=== PATIENT | female | born 1980 | race Caucasian/White ===

== ENCOUNTER 2024-08-08 15:15 | Outpatient (RCR) | payer BC, SELFPAY | END 2024-12-06 23:59 | disposition home or self-care (01) | PROVIDERS: Visit Provider Family Medicine | DX: G56.03 Carpal tunnel syndrome, bilateral upper limbs (principal); M25.521 Pain in right elbow; Z51.89 Encounter for other specified aftercare | CPT/HCPCS: 97033; 97035; 97110; 97140; 97166; X5282 ==

== ENCOUNTER 2024-12-24 16:15 | Outpatient (RCR) | payer BC, SELFPAY | END 2025-02-02 13:28 | disposition home or self-care (01) | PROVIDERS: Visit Provider Physician Assistant | DX: G62.9 Polyneuropathy, unspecified (principal); M65.262 Calcific tendinitis, left lower leg; G35 Multiple sclerosis; M79.671 Pain in right foot; M79.672 Pain in left foot; M72.2 Plantar fascial fibromatosis; Z51.89 Encounter for other specified aftercare | CPT/HCPCS: 97110; 97112; 97162 ==

== ENCOUNTER 2025-01-01 09:02 | Emergency (ER) | payer OTHER, BC, SELFPAY ==
[2025-01-01 09:04] VITALS: BP 118/72; PULSE 76; RESP 20; TEMP 36.4; O2SAT 100; BMI 30.7
--- OUTSIDE RECORDS SUMMARY | 2025-01-01 09:05 | XMS_ITS | Clinical Summary ---
Author Organization [employer] [facility] Address [address] [place] [address] Care Team Providers Care Physical Integration Practitioner Name Role Phone Pcp, No Primary Care Provider Unavailabl e Allergies Active Allergy Reactions Criticality Noted Date Comments Benzodiazepines Confusion,Hallucinat ions ,Other - Describe In Comment Field 05/16/2011 Agitation, confusion hallucinations PN: agitation, paranoia PN: hallucinations Lorazepam Agitation,Hallucinations 05/21/2011 Medications calcium carbonate (CALCIUM 500) 500 mg calcium (1,250 mg) tablet Take 1,250 mg by mouth 2 times daily with meals. Active cholecalciferol (VITAMIN D) 1,000 unit capsule Take 4,000 Units by mouth once daily. Active multivitamin-min erals therapeutic (THERAGRAN-M) tablet Take 1 Tab by mouth. Active gabapentin (NEURONTIN) 100 mg capsuleIndicatio ns:Trigeminal neuralgia Take 1 capsule by mouth 3 times daily. 90 capsule 1 07/29/2019 Active Active Problems Problem Noted Date Diagnosed Date Tachycardia 02/01/2013 Weight loss 02/01/2013 Anxiety 01/13/2013 Insomnia 01/13/2013 Anxiety state, unspecified 05/29/2011 Major depressive disorder, recurrent episode, un specified 05/29/2011 Severe recurrent major depression with psychotic features 05/22/2011 Panic disorder without agoraphobia 05/22/2011 Resolved Problems Problem Noted Date Diagnosed Date Resolved Date 02/01/2013 06/02/2019 Immunizations Immunization Administration Dates Next Due Imovax 12/25/2007, 8,12/04/2007,11/30/2007, 11/27/2007 Influenza Virus, Unspecified 01/06/2009,01/22/20 08 Influenza, IIV3 (Age 6-35 mos) 12/26/2011 Influenza, IIV3 (Age >=3 years) 12/19/2010 Rabies Vaccine 12/25/2007, 8,12/04/2007,11/30/2007, 11/27/2007 Tdap 05/21/2013,11/04/2007 Social History Tobacco Use Types Packs/Day Years Used Date Smoking Tobacco: Never Smokeless Tobacco: Never Tobacco Cessation:Counseling Given: Yes Alcohol Use Standard Drinks/Week Comments Not Currently 0 (1 standard drink = 0.6 oz pur e alcohol) PHQ-2 Answer Date Recorded PHQ-2 Score 0 06/02/2019 Social Connections Answer Date Recorded Frequency of Communication with Friends and Fami ly Not on file 04/09/2021 Financial Resource Strain Answer Date R ecorded Difficulty of Paying Living Expenses Not on file 04/09/2021 Difficulty of Paying Living Expenses Not on file 04/09/2021 Comments No Sex and Gender Information Value Date Recorded Sex Assigned at Not on file Legal Sex Female 7:23 AM SR. 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 DIRECTOR PRODUCT MANAGEMENT Oxygen Saturation 98% 07/28/2019 11:38 AM CDT Inhaled Oxygen Concentration - - Weight 92.1 kg (203 lb) 07/28/2019 11:38 AM CDT Height 165.1 cm (5' 5) 07/28/2019 11:38 AM CDT Body Mass Index 33.78 07/28/2019 11:38 AM CDT Plan of Treatment Health Maintenance Due Date Last Done Comments Depression screening for age 12+ 1990 HIV for age 15-65 1993 Hepatitis C screening for age 18-79 1996 Hepatitis B series for 19+ (1 of 3 - 19+ 3-dose series) 1997 Pap test for age 21-65 1999 BMI (ht and wt on same day) for age 18+ 07/27/2020 07/28/2019, 06/02/2019, 05/30/2019 Colonoscopy through age 75 2023 Lipids for age 45-75 2023 Mammogram for age 45-75 2023 Tetanus booster 05/21/2023 05/21/2013, 11/04/2007 COVID-19 vaccine series ( - 2023- season) 2024 Influenza Vaccine (#1) 2024 2, 12/19/2010, 01/06/2009, Additional history exists RSV vaccine for adults or (1 - 1-dose 75+ series) 2053 Pneumococcal series for age 6-49 Aged Out No longer eligible based on patient's age to complete this topic Insurance MEDICA CHOICE Advance Directives * Full Code (Latest Code Status on File) Date Activated Date Inactivated Comments 01/31/2013 9:50 PM 02/20/2013 4:28 PM * Full Code Date Activated Date Inactivated Comments 01/12/2013 9:22 PM 01/16/2013 1:45 PM * Full Code Date Activated Date Inactivated Comments 06/11/2011 2:51 PM 06/15/2011 6:20 PM * Full Code Date Activated Date Inactivated Comments 05/21/2011 11:37 PM 05/25/2011 3:32 PM Care Teams Physical Integration Practitioner Relationship Specialty Start Date End Date Pcp, No . PCP - General 05/30/19
--- OUTSIDE RECORDS SUMMARY | 2025-01-01 09:05 | XMS_ITS | Encounter Summary ---
Author Organization [facility] Address [address] [place] [address]. [place] [address] Care Team Providers Care Electroencephalogram Technologist Name Role Phone [facility] Primary Care Provider Rodrigo Vaz MD Unavailable [phone] Natalie Jacob Unavailable Tiff Ortiz MD Unavailable [phone] Encounter Details Date Type Department Care Team (Late st Contact Info) Description 08/25/2019 [facility] [address] [place] [id number] Keri Waddell Social History Tobacco Use Types Packs/Day Years Used Date Smoking Tobacco: Never Smokeless Tobacco: Never Alcohol Use Standard Drinks/Week Comments No 0 (1 standard drink = 0.6 oz pur e alcohol) Comments No Sex and Gender Information Value Date Recorded Sex Assigned at Female 08/09/2019 4:21 PM CDT 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 [address] [facility] [place], [place] [address] PCP - General 08/27/13 Rodrigo Vaz MD [address] [facility] [place], [place] [id number] Neurological Surgery 08/08/19 Natalie Jacob [address] [facility] [place], [place] [id number] Referring Physician 08/08/19 Tiff Ortiz MD [address] [place], [place] [address] Assigned Neuroscience Provider 01/30/20 02/26/21 documented as of this encounter
--- OUTSIDE RECORDS SUMMARY | 2025-01-01 09:05 | XMS_ITS | Encounter Summary ---
Author Organization [facility] Address [address] [place] [address]. [place] [address] Care Team Providers Care County Adviser Name Role Phone [facility] Primary Care Provider Rodrigo Vaz MD Unavailable [phone] Natalie Jacob Unavailable Tiff Ortiz MD Unavailable [phone] Encounter Details Date Type Department Care Team (Late st Contact Info) Description 09/02/2013 [facility] Treatment Plan [facility] 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 Gender Identity Female 08/09/2019 4:21 PM CDT Sexual Orientation Straight 08/09/2019 4: 21 PM CDT documented as of this encounter Plan of Treatment Not on file documented as of this encounter Visit Diagnoses Not on filedocumented in this encounter Care Teams County Adviser Relationship Specialty Start Date End Date [facility] [address] [facility] [place], [place] [phone] PCP - General 08/27/13 Rodrigo Vaz MD [address] [place], [place] [address] [place] [address] Neurological Surgery 08/08/19 Natalie Jacob [address] [place] [id number] Referring Physician 08/08/19 Tiff Ortiz MD [address] [place] [id number] Assigned Neuroscience Provider 01/30/20 02/26/21 documented as of this encounter
--- OUTSIDE RECORDS SUMMARY | 2025-01-01 09:05 | XMS_ITS | Encounter Summary ---
Author Organization [facility] Address [address] [place] [address]. [place] [address] Care Team Providers Care Production Manager Name Role Phone [facility] Primary Care Provider Rodrigo Vaz MD Unavailable Natalie Jacob Unavailable Tiff Ortiz MD Unavailable [phone] Encounter Details Date Type Department Care Team (Late st Contact Info) Description 08/20/2019 [facility] Neurosurgery [address] [place] [phone] Christina Nevarez, RN Social History Tobacco Use Types Packs/Day Years Used Date Smoking Tobacco: Never Alcohol Use Standard Drinks/Week Comments No 0 (1 standard drink = 0.6 oz pur e alcohol) Comments No Sex and Gender Information Value Date Recorded Sex Assigned at Female 08/09/2019 4:21 PM CDT 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 Gender Identity Female 08/09/2019 4:21 PM CDT Sexual Orientation Straight 08/09/2019 4: 21 PM CDT documented as of this encounter Plan of Treatment Not on file documented as of this encounter Visit Diagnoses Not on filedocumented in this encounter Care Teams Production Manager Relationship Specialty Start Date End Date [facility] [address] [place] [address] [place] [address] PCP - General 08/27/13 Rodrigo Vaz MD [address] [place] [address] Neurological Surgery 08/08/19 Natalie Jacob [address] [place] [address] Referring Physician 08/08/19 Tiff Ortiz MD [address] [place] [address] Assigned Neuroscience Provider 01/30/20 02/26/21 documented as of this encounter
--- OUTSIDE RECORDS SUMMARY | 2025-01-01 09:05 | XMS_ITS | Clinical Summary ---
Author Organization [facility] Address [address] [place] [address]. [place] [address] Care Team Providers Care Storage Engineer Name Role Phone [facility] Primary Care Provider Rodrigo Vaz MD Unavailable [phone] Natalie Jacob Unavailable Allergies Active Allergy Reactions Criticality Noted Date Comments Benzodiazepines Other (See Comments) 05/16/2011 Other reaction(s): Agitation, Confusion, Confusion, Hallucinations, Hallucinations agitation, paranoia Agitation, confusion hallucinations PN: agitation, paranoia PN: hallucinations Agitation, confusion hallucinations PN: agitation, paranoia PN: hallucinations Lorazepam 08/27/2013 Medications multivitamin, therapeutic with minerals (THERA-VIT-M) TABS Take 1 tablet by mouth daily Active melatonin 3 MG tablet Take 0.5 tablets (1.5 mg) by mouth nightly as needed for sleep 09/27/19 14 Active traZODone (DESYREL) 50 MG tabletIndicatio ns:Anxiety Take 0.5 tablets (25 mg) by mouth 3 times daily as needed for other (anxiety) 45 tablet 1 09/27/19 14 Active docusate sodium 100 MG CAPSIndications :Hemorrhoids Take 100 mg by mouth 2 times daily as needed for constipation 60 capsule 1 09/27/19 14 Active fish oil-omega-3 fatty acids 1000 MG capsuleIndicati ons:Depression Take 2 capsules (2 g) by mouth daily 60 capsule 1 09/27/19 14 Active OLANZapine (ZYPREXA) 2.5 MG tabletIndicatio ns:Anxiety Take 1 tablet (2.5 mg) by mouth every 2 hours as needed (severe anxiety) 90 tablet 1 09/27/19 14 Active diltiazem 2% in PLO gel, FV COMPOUNDED, 2% GEL Apply topically 2 times daily 09/27/19 14 Active alclomethasone (ACLOVATE) 0.05 % ointment Apply topically 2 times daily 09/27/19 14 Active witch juan antonio-glycerin (TUCKS) padIndications: Hemorrhoids Apply topically every hour as needed for hemorrhoids 60 each 1 09/27/19 14 Active hydrocortisone (ANUSOL-HC) 25 MG suppositoryIndi cations:Hemorrh oids Place 1 suppository (25 mg) rectally 2 times daily 28 suppository 1 09/27/19 14 Active sertraline (ZOLOFT) 50 MG tabletIndicatio ns:Anxiety Take 1 tablet (50 mg) by mouth daily 2 tablet 0 10/01/19 14 Active Active Problems Problem Noted Date Diagnosed Date MENTAL HEALTH 08/27/2013 Family History Medical History Relation Comments Multiple Sclerosis Maternal Grandmother Multiple Sclerosis Maternal Uncle Arthritis Mother Relation Status Comments Maternal Grandmother Maternal Uncle Mother Social History Tobacco Use Types Packs/Day Years Used Date Smoking Tobacco: Never Smokeless Tobacco: Never Alcohol Use Standard Drinks/Week Comments No 0 (1 standard drink = 0.6 oz pur e alcohol) Adolescent Education Answer Date Record ed Getting School Help Needed Not on file 01/13 Comments No Sex and Gender Information Value Date Recorded Sex Assigned at Female 08/09/2019 4:21 PM CDT 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 Gender Identity Female 08/09/2019 4:21 PM CDT Sexual Orientation Straight 08/09/2019 4: 21 PM CDT Last Filed Vital Signs Vital Sign Reading Time Taken Comments Blood Pressure 106/52 09/25/2013 7:02 AM CDT Pulse 82 09/25/2013 7:02 AM CDT Temperature 35.7 C (96.2 F) 09/30/2013 8:08 AM CDT Respiratory Rate 16 09/30/2013 8:08 AM CDT Oxygen Saturation 99% 08/27/2013 8:53 PM CDT Inhaled Oxygen Concentration - - Weight 63.3 kg (139 lb 8 oz) 09/28/2013 8:03 AM CDT Height 163.8 cm (5' 4.49) 08/27/2013 9:20 PM CD T Body Mass Index 23.58 08/27/2013 9:20 PM CDT Plan of Treatment Not on file Insurance MEDICA CHOICE [address] [place] [address] [employer] [address] [place] [address] Advance Directives For more information, please contact: [phone] * Full Code (Latest Code Status on File) Date Activated Date Inactivated Comments 08/27/2013 10:05 PM 09/30/2013 3:24 PM Care Teams Storage Engineer Relationship Specialty Start Date End Date [facility] [address] [address] PCP - General 08/27/13 Rodrigo Vaz MD [address] [id number] Neurological Surgery 08/08/19 Natalie Jacob [address] [place] [id number] Referring Physician 08/08/19
--- NOTE | 2025-01-01 09:36 | ED.GENADULT ---
HPI - General Adult General Time Seen by Provider: 09:36 Date Seen: 01/01/25 Chief complaint: Skin/Abscess/Foreign Body Stated complaint: Wasp sting L arm Time Seen by Provider: 01/01/25 09:14 Source: patient Mode of arrival: ambulatory Limitations: no limitations History of Present Illness HPI narrative: Aminah is a 44-year-old female with multiple sclerosis, currently on immunosuppression, presents emerged department via private car and by herself with a left arm wasp sting. Patient states in the afternoon on Sunday she was stung by a wasp under her left arm by her armpit. She has been putting ice to the area, [id number] antihistamines and the symptoms have progressively got worse. She was seen at [facility] for her MS she also saw dermatology, they ended up outlining the area. Patient continues to have increased pain to the area, the redness has gotten worse, no history of any MRSA. She denies any fevers but has had chills, she denies any difficulty with swallowing or breathing, she has been bit by wasps in the past but never had a reaction similar to this. She was wondering if it was due to being on immunosuppression. Related Data Home Medications ?Medication ?Instructions ?Recorded ?Confirmed methenamine hippurate 1 gram tablet 1 g PO BID 12/01/24 01/01/25 ocrelizumab 30 mg/mL intravenous 300 mg IV [id number] 12/01/24 01/01/25 solution (Ocrevus) Previous Rx's ?Medication ?Instructions ?Recorded cefadroxil 500 mg capsule 500 mg PO BID 5 days #10 caps 01/01/25 doxycycline monohydrate 100 mg 100 mg PO BID 5 days #10 caps 01/01/25 capsule Allergies Allergy/AdvReac Type Severity Reaction Status Date / Time Benzodiazepines Allergy Severe Hallucinati Verified 01/01/25 09:11 ng Review of Systems Status of ROS: Reports: 10 or more systems reviewed and unremarkable except as noted in History and below [facility] Medical History (Updated 01/01/25 @ 09:55 by Fer Rose MD) Spondylosis without myelopathy or radiculopathy, lumbar region ?M47.816 - Spondylosis without myelopathy or radiculopathy, lumbar region (ICD-10) Multiple sclerosis ?G35 - Multiple sclerosis (ICD-10) 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 - Other disorders of optic nerve, not elsewhere classified, unspecified eye (ICD-10) Fracture of right hip ?S72.001A - Fracture of unspecified part of neck of right femur, initial encounter for closed fracture (ICD-10) IVÁN (generalized anxiety disorder) ?F41.1 - Generalized anxiety disorder (ICD-10) Fibromyalgia ?M79.7 - Fibromyalgia (ICD-10) Severe recurrent major depression with psychotic features (05/22/11) ?F33.3 - Major depressive disorder, recurrent, severe with psychotic symptoms (ICD-10) COVID-19 virus infection (08/23/21) ?U07.1 - COVID-19 (ICD-10) Asthma (01/30/20) ?J45.909 - Unspecified asthma, uncomplicated (ICD-10) Surgical History (Updated 11/26/24 @ 15:43 by Raissa Beckett ~ [facility], [facility]) History of hemorrhoidectomy (09/14/23) ?Z98.890 - Other specified postprocedural states (ICD-10) History of exploratory laparotomy (11/2018) ?Z98.890 - Other specified postprocedural states (ICD-10) History of breast biopsy ?Z98.890 - Other specified postprocedural states (ICD-10) History of total abdominal hysterectomy ?Z90.710 - Acquired absence of both cervix and uterus (ICD-10) Family History (Updated 12/01/24 @ 13:40 by Marcy Lino~[facility], [facility]) Other Diabetes High cholesterol Exam Narrative: Exam Narrative: General: No obvious distress sitting comfortably HEENT: Oropharynx clear and moist, no tongue swelling Lungs: No wheezing or stridor, clear to auscultation bilaterally Heart: Normal sinus rhythm Abdomen: Soft Muscle skeletal: Left arm, axillary area there is a large area of erythema that is warm and tender to touch, no induration or fluctuance. Patient does have axillary adenopathy present. Neuro: Alert awake oriented x3. Const: Vital Signs, click to edit/add: Vital Signs - 24 hr 01/01/25 09:04 Temperature 97.5 F L Pulse Rate [Pulse Oximeter] 76 Respiratory Rate 20 Blood Pressure [Ri ght Upper Arm] 118/72 Pulse Oximetry 100 Oxygen Delivery Me thod Room Air Course Course ED Course: ED course: 9:30 AM: aidet performed. Workup will include IM Rocephin 1 g for developing cellulitis, offered blood work but patient deferred since she just had them at [facility] yesterday, will likely discharge with antibiotics, she will continue with ice, [id number] antihistamines. Differential includes cellulitis, skin abscess, atopic dermatitis, contact dermatitis, allergic reaction, anaphylaxis, contusion. Reevaluation(s) Time of Reevaluation #1: 11:33 Reevaluation #1: Patient was given the above care and did well, work note given over the next 2 days, prescription for cefadroxil 500 mg b.i.d. and doxycycline monohydrate 100 mg b.i.d. over the next 7 days based on her immunosuppression MS and developing cellulitis, patient should follow-up with primary care provider over the next 7-10 days. Return precautions given. Vital Signs Vital signs: Initial Vital Signs Temperature 97.5 F L 01/01/25 09:04 Temperature Source Temporal Artery Scan 01/01/25 09:04 Pulse Rate 76 01/01/25 09:04 Respiratory Rate 20 01/01/25 09:04 Blood Pressure 118/72 01/01/25 09:04 Blood Pressure Mean 87 01/01/25 09:04 Blood Pressure Position Sitting 01/01/25 09:04 Pulse Oximetry 100 01/01/25 09:04 Oxygen Delivery Method Room Air 01/01/25 09:04 Vital Signs Temperature 97.5 F L 01/01/25 09:04 Pulse Rate 76 01/01/25 09:04 Respiratory Rate 20 01/01/25 09:04 Blood Pressure 118/72 01/01/25 09:04 Pulse Oximetry 100 01/01/25 09:04 Oxygen Delivery Method Room Air 01/01/25 09:04 Temperature 97.5 F L 01/01/25 09:04 Pulse Rate 76 01/01/25 09:04 Respiratory Rate 20 01/01/25 09:04 Blood Pressure 118/72 01/01/25 09:04 Pulse Oximetry 100 01/01/25 09:04 Oxygen Delivery Method Room Air 01/01/25 09:04 Medications Administered Medications: Discontinued Medications Generic Name Dose Route Start Last Admin Trade Name Freq PRN Reason Stop Dose Admin Ceftriaxone Sodium 1 gm 01/01/25 09:35 01/01/25 09:51 Ceftriaxone 1 Gm Vial IM 01/01/25 09:36 1 gm ONCE ONE Administration Lidocaine HCl 2.1 ml 01/01/25 09:35 01/01/25 09:51 Lidocaine 1% 5 Ml (Pf) 5 Ml Vial IM 2.1 ml DIRECTED PRN Administration Pain Discharge Plan Discharge Clinical Impression: Cellulitis of arm, left Patient Disposition: Home, Self-Care Condition: Improved Instructions: Cellulitis (ED) Additional Instructions: Cefadroxil 500 mg twice a day with Doxycycline 100 mg twice a day, continue with OTC medications, elevate and ice to the area. Activity Level: No Restrictions Prescriptions: New doxycycline monohydrate 100 mg capsule 100 mg PO BID 5 Days Qty: 10 0RF cefadroxil 500 mg capsule 500 mg PO BID 5 Days Qty: 10 0RF No Action methenamine hippurate 1 gram tablet 1 g PO BID Ocrevus 30 mg/mL solution 300 mg IV [id number] Follow Up/Referrals: Angelina Hollis MD [Primary Care Provider, Family Practice] Stand Alone Forms: MyHealth Info Instructions
[2025-01-01] MEDS: LIDOCAINE 1% 5 ml (pf) 5 ML VIAL 2.1 ML IM (09:51)
[2025-01-01] MEDS: cefTRIAXone 1 GM VIAL IM (09:51)
== END 2025-01-01 10:09 | disposition home or self-care (01) ==
PROVIDERS: Emergency Provider Student in an Organized Health Care Education/Training Program; PCP Family Medicine
DX: L03.114 Cellulitis of left upper limb (principal); T63.461A Toxic effect of venom of wasps, accidental (unintentional), initial encounter
CPT/HCPCS: 96372; 99283; 99284; J0696